=== PATIENT | female | born 1970 | race Native Hawaiian/Other Pacific Islander ===

== ENCOUNTER 2017-02-05 21:49 | Emergency (ER) | payer OTHER ==
[2017-02-05 22:22] VITALS: TEMP 97.9
[2017-02-05] MEDS ORDERED: BARIUM SULFATE 450 ML ORAL.SUSP BOTTLE PO PRN (23:16)
[2017-02-05] MEDS ORDERED: RX INFO: IV CONTRAST WAS GIVEN 1 EACH MISC MISCELLANE PRN (23:16)
[2017-02-05] MEDS ORDERED: FAMOTIDINE 20 MG/2 ML VIAL IV STA (23:20)
[2017-02-05] MEDS ORDERED: diphenhydrAMINE 50 MG/ML 1 ML VIAL IVP STA (23:20)
[2017-02-05] MEDS ORDERED: methylPREDNISolone SOD SUCCI 125 MG/2 ML VIAL IV STA (23:21)
--- NOTE | 2017-02-05 23:59 | ED ---
Abdominal Pain HPI - General Chief Complaint: Abdominal Pain Stated Complaint: Left Flank Pain Time Seen by Provider: 02/05/17 22:59 Source: patient Mode of arrival: ambulatory Limitations: no limitations - History of Present Illness Initial Comments: This patient is a 46-year-old woman who presents with complaint of left upper quadrant pain. She states that this pain has been going on for approximately 6 months. Patient states that she is from [place] and her physician there had seen her and was not able to tell her the cause of the pain. She also has been feeling a lump along the left costal margin approximately in the mid axillary line. Patient believes that what she is feeling there may be related to the pains and left upper quadrant. The pain is an aching. It is becoming progressively worse since it first developed. She is not having any associated symptoms. Patient declined analgesic medicine. MD Complaint: abdominal pain Onset/Timin -: month(s) Location: [facility] Radiation: none Migration to: no migration Severity: moderate Quality: aching, fullness Consistency: constant Improves With: nothing Worsens With: other (Palpation) Associated Symptoms: denies other symptoms - Related Data Home Medications Medication Instructions Recorded Confirmed HYDROcodone/APAP 5-325MG [[place] 1 tab PO TID PRN 02/05/17 02/05/17 5-325] Omeprazole [PriLOSEC] 20 mg PO BID PRN 02/05/17 02/05/17 Allergies Allergy/AdvReac Type Severity Reaction Status Date / Time iodine Allergy Swelling Verified 02/05/17 23:18 shellfish derived [Shellfish] Allergy Swelling Verified 02/05/17 23:18 Review of Systems ROS Statement: Those systems with pertinent positive or pertinent negative responses have been documented in the HPI. ROS Other: All systems not noted in ROS Statement are negative. Constitutional: Denies: fever, chills Respiratory: Denies: cough, dyspnea Cardiovascular: Denies: chest pain, palpitations, dyspnea on exertion, orthopnea , edema Gastrointestinal: Reports: as per HPI, abdominal pain. Denies: nausea, vomiting , diarrhea, constipation Genitourinary: Denies: dysuria, hematuria Musculoskeletal: Denies: back pain Skin: Denies: rash Neurological: Denies: headache, weakness, numbness Past Medical History Additional Past Medical History / Comment(s): ulcer History of Any Multi-Drug Resistant Organisms: None Reported Past Surgical History: No Surgical Hx Reported Past Psychological History: No Psychological Hx Reported Smoking Status: Current every day smoker Past Alcohol Use History: Rare Past Drug Use History: None Reported General Exam Limitations: no limitations General appearance: alert, in no apparent distress, obese Head exam: Present: atraumatic, normocephalic Eye exam: Present: normal appearance. Absent: scleral icterus, conjunctival injection ENT exam: Present: normal oropharynx Neck exam: Present: normal inspection, full ROM Respiratory exam: Present: normal lung sounds bilaterally. Absent: respiratory distress, wheezes, rales, rhonchi, stridor Cardiovascular Exam: Present: regular rate, normal rhythm, normal heart sounds. Absent: systolic murmur, diastolic murmur, rubs, gallop GI/Abdominal exam: Present: soft, tenderness (Left upper quadrant), normal bowel sounds, other (There is an approximately 1-1.5 cm diameter outpouching of skin in the left midaxillary line at approximately the costal margin where the patient indicates the symptoms are. ). Absent: distended, guarding, rebound, rigid, mass, hernia Extremities exam: Present: normal inspection, normal capillary refill. Absent: pedal edema, calf tenderness Back exam: Present: normal inspection. Absent: CVA tenderness (R), CVA tenderness (L) Neurological exam: Present: alert Skin exam: Present: warm, dry, intact, normal color. Absent: rash, cyanosis, diaphoretic, erythema, petechiae, pallor, mottled Course Vital Signs 02/05/17 02/06/17 02/06/17 22:16 01:36 02:39 Temperature 97.9 F 97.9 F Pulse Rate 18 L 78 78 Respiratory 88 H 16 18 Rate Blood Pressure 160/88 128/77 138/69 O2 Sat by Pulse 99 98 97 Oximetry Medical Decision Making - Medical Decision Making Patient is a 46-year-old woman with proximal to 6 months of left sided abdominal pain. Abdominal pain workup performed. The labs are not indicative of the source of pain. The most concerning finding on CT was the possible gallbladder wall thickening and this was discussed with the patient. I explained that symptoms related to this or usually observed on the right side of the abdomen. In discussing this the patient and her became very angry that the source of pain was not definitively identified. They stated that they wanted proof and not opinion. I did offer to admit the patient to be examined by the surgeon in the morning and the patient refuses this, they state they would want to go to a different facility. I did leave the room to allow time for the patient and family member to dissipate anger and return to offered admission again they refused. Will be provided with disc with the CT images. Discussed return parameters. - Lab Data Result diagrams: 02/05/17 23:45 02/05/17 23:45 Lab Results 02/05/17 02/05/17 02/05/17 Range/Units 23:44 23:44 23:45 WBC (3.8-10.6) k/uL RBC (3.80-5.40) m/uL Hgb (11.4-16.0) gm/dL Hct (34.0-46.0) % MCV (80.0-100.0) fL MCH (25.0-35.0) pg MCHC (31.0-37.0) g/dL RDW (11.5-15.5) % Plt Count (150-450) k/uL Neutrophils % % Lymphocytes % % Monocytes % % Eosinophils % % Basophils % % Neutrophils # (1.3-7.7) k/uL Lymphocytes # (1.0-4.8) k/uL Monocytes # (0-1.0) k/uL Eosinophils # (0-0.7) k/uL Basophils # (0-0.2) k/uL Sodium 142 (137-145) mmol/L Potassium 5.0 (3.5-5.1) mmol/L Chloride 110 H (98-107) mmol/L Carbon Dioxide 21 L (22-30) mmol/L Anion Gap 11 mmol/L BUN 15 (7-17) mg/dL Creatinine 0.50 L (0.52-1.04) mg/dL Est GFR (MDRD) Af Amer >60 (>60 ml/min/1.73 sqM) Est GFR (MDRD) Non-Af >60 (>60 ml/min/1.73 sqM) Glucose 178 H (74-99) mg/dL Calcium 9.2 (8.4-10.2) mg/dL Total Bilirubin 0.6 (0.2-1.3) mg/dL AST 34 (14-36) U/L ALT 34 (9-52) U/L Alkaline Phosphatase 94 (38-126) U/L Total Protein 7.9 (6.3-8.2) g/dL Albumin 3.9 (3.5-5.0) g/dL Amylase 48 (30-110) U/L Lipase 107 (23-300) U/L Urine Color Yellow Urine Appearance Clear (Clear) Urine pH 5.5 (5.0-8.0) Ur Specific [place] 1.029 (1.001-1.035) Urine Protein Trace H (Negative) Urine Glucose (UA) 3+ H (Negative) Urine Ketones Trace H (Negative) Urine Blood Negative (Negative) Urine Nitrite Negative (Negative) Urine Bilirubin Negative (Negative) Urine Urobilinogen 2.0 (<2.0) mg/dL Ur Leukocyte Esterase Trace H (Negative) Urine RBC 3 (0-5) /hpf Urine WBC 2 (0-5) /hpf Ur Squamous Epith Cells 3 (0-4) /hpf Calcium Oxalate Crystal Rare H (None) /hpf Urine Bacteria Rare H (None) /hpf Urine Mucus Few H (None) /hpf Urine HCG, Qual Not Detected (Not Detectd) 02/05/17 Range/Units 23:45 WBC 8.5 (3.8-10.6) k/uL RBC 4.31 (3.80-5.40) m/uL Hgb 11.8 (11.4-16.0) gm/dL Hct 37.8 (34.0-46.0) % MCV 87.9 (80.0-100.0) fL MCH 27.4 (25.0-35.0) pg MCHC 31.2 (31.0-37.0) g/dL RDW 14.9 (11.5-15.5) % Plt Count 329 (150-450) k/uL Neutrophils % 54 % Lymphocytes % 34 % Monocytes % 5 % Eosinophils % 3 % Basophils % 1 % Neutrophils # 4.6 (1.3-7.7) k/uL Lymphocytes # 2.9 (1.0-4.8) k/uL Monocytes # 0.4 (0-1.0) k/uL Eosinophils # 0.2 (0-0.7) k/uL Basophils # 0.1 (0-0.2) k/uL Sodium (137-145) mmol/L Potassium (3.5-5.1) mmol/L Chloride (98-107) mmol/L Carbon Dioxide (22-30) mmol/L Anion Gap mmol/L BUN (7-17) mg/dL Creatinine (0.52-1.04) mg/dL Est GFR (MDRD) Af Amer (>60 ml/min/1.73 sqM) Est GFR (MDRD) Non-Af (>60 ml/min/1.73 sqM) Glucose (74-99) mg/dL Calcium (8.4-10.2) mg/dL Total Bilirubin (0.2-1.3) mg/dL AST (14-36) U/L ALT (9-52) U/L Alkaline Phosphatase (38-126) U/L Total Protein (6.3-8.2) g/dL Albumin (3.5-5.0) g/dL Amylase (30-110) U/L Lipase (23-300) U/L Urine Color Urine Appearance (Clear) Urine pH (5.0-8.0) Ur Specific [place] (1.001-1.035) Urine Protein (Negative) Urine Glucose (UA) (Negative) Urine Ketones (Negative) Urine Blood (Negative) Urine Nitrite (Negative) Urine Bilirubin (Negative) Urine Urobilinogen (<2.0) mg/dL Ur Leukocyte Esterase (Negative) Urine RBC (0-5) /hpf Urine WBC (0-5) /hpf Ur Squamous Epith Cells (0-4) /hpf Calcium Oxalate Crystal (None) /hpf Urine Bacteria (None) /hpf Urine Mucus (None) /hpf Urine HCG, Qual (Not Detectd) Disposition Clinical Impression: Abdominal pain Disposition: Left Against Medical Advice Condition: Fair Instructions: Cholecystitis (ED), Diverticulosis (ED), Non-Alcoholic Fatty Liver Disease (ED), Abdominal Pain (ED) Referrals: None,Stated [Primary Care Provider] - 1-2 days Landon Land MD [STAFF PHYSICIAN] - 1-2 days
[2017-02-06 00:12] LABS: Basophils # (A) 0.1 k/uL (0-0.2); Basophils % (A) 1 %; CH 27.9; Eosinophils # (A) 0.2 k/uL (0-0.7); Eosinophils % (A) 3 %; HCT 37.8 % (34.0-46.0); HGB 11.8 gm/dL (11.4-16.0); Luc # (Auto) 0.29; Luc % (Auto) 3; Lymphocytes # (A) 2.9 k/uL (1.0-4.8); Lymphocytes % (A) 34 %; MCH 27.4 pg (25.0-35.0); MCHC 31.2 g/dL (31.0-37.0); MCV 87.9 fL (80.0-100.0); Monocytes # (A) 0.4 k/uL (0-1.0); Monocytes % (A) 5 %; Neutrophils # (A) 4.6 k/uL (1.3-7.7); Neutrophils % (A) 54 %; RBC 4.31 m/uL (3.80-5.40); RDW 14.9 % (11.5-15.5); WBC 8.5 k/uL (3.8-10.6); WBC (Perox) 8.45
[2017-02-06 00:19] LABS: Appearance,Urine Clear (Clear); Bacteria,Urine Rare /hpf; Bilirubin,Urine Negative (Negative); Calcium Oxalate Crystals,Urine Rare /hpf; Glucose,Urine (UA) 3+ (Negative); Ketones,Urine Trace (Negative); Leukocyte Esterase,Urine Trace (Negative); Mucus,Urine Few /hpf; Nitrite,Urine Negative (Negative); PH, Urine 5.5 (5.0-8.0); Particle Count 7793; Protein,Urine Trace (Negative); RBC,Urine 3 /hpf (0-5); Specific Gravity,Urine 1.029 (1.001-1.035); Squamous Epithelial Cell,Urine 3 /hpf (0-4); UA Billing (MACRO vs. MICRO) MICRO; WBC,Urine 2 /hpf (0-5)
[2017-02-06 00:22] LABS: ALT 34 U/L (9-52); AST 34 U/L (14-36); Alkaline Phosphatase 94 U/L (38-126); Amylase 48 U/L (30-110); Anion Gap 11 mmol/L; Blood Urea Nitrogen 15 mg/dL (7-17); Calcium 9.2 mg/dL (8.4-10.2); Carbon Dioxide 21 mmol/L (22-30); Chloride 110 mmol/L (98-107); Glucose 178 mg/dL (74-99); Non-African American GFR(MDRD) >60 (>60 ml/min/1.73 sqM); Sodium 142 mmol/L (137-145); Total Bilirubin 0.6 mg/dL (0.2-1.3); Total Protein 7.9 g/dL (6.3-8.2)
[2017-02-06 01:36] VITALS: PULSE 78
--- NOTE | 2017-02-06 02:13 | CT ---
EXAM: CT Abdomen and Pelvis With Intravenous Contrast CLINICAL HISTORY: Reason: abdominal pain TECHNIQUE: Axial computed tomography images of the abdomen and pelvis with intravenous contrast. CTDI is 63.6 mGy and DLP is 2580.4 mGy-cm. This CT exam was performed using one or more of the following dose reduction techniques: automated exposure control, adjustment of the mA and/or kV according to patient size, and/or use of iterative reconstruction technique. COMPARISON: None. FINDINGS: ABDOMEN: Liver: Evidence of hepatic steatosis. Gallbladder and bile ducts: Questionable mild gallbladder wall thickening and/or pericholecystic fluid. Pancreas: Unremarkable. No mass. No ductal dilation. Spleen: Unremarkable. No splenomegaly. A 0.8 cm splenule is seen adjacent to the splenic hilum. Adrenals: Unremarkable. No mass. Kidneys and ureters: Unremarkable. No solid mass. No hydronephrosis. Stomach and bowel: Colonic diverticulosis is noted. Small hiatal hernia is seen. No obstruction. No mucosal thickening. Appendix: No findings to suggest acute appendicitis. PELVIS: Bladder: Unremarkable. No mass. Reproductive: Unremarkable as visualized. ABDOMEN and PELVIS: Intraperitoneal space: Unremarkable. No free air. No significant fluid collection. Bones/joints: Bilateral L5 pars defects are seen resulting in grade 1 anterolisthesis of L5 on S1. Associated degenerative changes are also seen at this level. No acute fracture. No dislocation. Soft tissues: Unremarkable. Vasculature: Unremarkable. No abdominal aortic aneurysm. Lymph nodes: Unremarkable. No enlarged lymph nodes. IMPRESSION: 1. Questionable mild gallbladder wall thickening and/or pericholecystic fluid. Right upper quadrant ultrasound recommended for further evaluation, if clinically indicated. 2. Colonic diverticulosis without evidence of acute diverticulitis. 3. Bilateral L5 pars defects resulting in grade 1 anterolisthesis of L5 on S1. 4. Evidence of hepatic steatosis.
[2017-02-06 02:42] VITALS: BP 138/69; RESP 18
== END 2017-02-06 02:47 | disposition left against medical advice (07) ==
LOC: EC 21:49
DX: R10.12 Left upper quadrant pain (principal); R22.2 Localized swelling, mass and lump, trunk; E66.9 Obesity, unspecified; F17.200 Nicotine dependence, unspecified, uncomplicated; Z91.013 Allergy to seafood; Z91.048 Other nonmedicinal substance allergy status; Z68.41 Body mass index [BMI] 40.0-44.9, adult
CPT/HCPCS: 36415; 80053; 82150; 83690; 85025; 81001; 81025; 74177; 99284; 96374; 96375 ×2; J1200; J2930